=== PATIENT | female | born 1945 | race Caucasian/White ===

== ENCOUNTER → 2017-05-25 | Day surgery (SDC) | payer MEDICARE, BC ==
[2017-05-24 16:17] VITALS: BMI 27.0
[~2017-05-25] MED LIST: Lidocaine 1% PF 5 ML VIAL ONE; PROPOFOL 200 MG/20 ML VIAL ONE
--- NOTE | 2017-05-25 14:46 | OP ---
DATE OF PROCEDURE: 05/25/2017 TITLE OF PROCEDURE: Esophagogastroduodenoscopy with esophageal stricture dilation. PREPROCEDURE DIAGNOSES: 1. Dysphagia. 2. History of radiation-induced proximal esophageal stricture. 3. Distant history of tonsillar cancer. ANESTHESIA: Total intravenous anesthesia by Chayito Corbett CRNA. PROCEDURE IN DETAIL: Written informed consent was obtained. The patient was brought to the endoscopy suite. Total intravenous anesthesia was administered. A pediatric bite block was inserted into the mouth. When adequate sedation was achieved, a Pentax video diagnostic gastroscope was introduced into the oral cavity and the esophagus was carefully intubated. The gastroscope was advanced under direct visualization to the second portion of the duodenum. Endoscopic findings revealed a moderate luminal narrowing from the proximal esophageal stricture at 16 cm from the incisors. With careful movement of the endoscope, the stricture was traversed and the exam was completed before the dilation was performed. The EG junction was estimated at 37 cm. Examination of the stomach, including a retroflexed view of the cardia and fundus revealed a stable pancreatic rest in the body, antrum, area of the stomach, greater curvature. No ulcers or gastritis was identified. The duodenum from the bulb to the second portion was inspected and appeared grossly normal. Using an 18- 20 mm TTS balloon, the proximal esophageal stricture was dilated gently first at 2 atmospheres, then at stage I inflation pressure for 1 minute and finally at stage II inflation pressure for 230 second intervals. Post-dilation, a small superficial vertical mucosal disruption was identified, but no overt perforation was seen. Slight oozing was seen from the mucosal disruption, but no active bleeding was noted at the completion of the exam. A small submucosal hematoma, approximately 3-4 mm in size was also identified at the level of the stricture dilation. The esophagus was decompressed as the endoscope was completely removed from the patient. She was transferred to the day stay surgery area for post-procedure monitoring. There were no immediate complications. RECOMMENDATIONS: 1. Recommend liquid diet and soft foods today. 2. Continued Dexilant 60 mg daily. 3. Repeat EGD with dilation p.r.n. MTDD
== END ==
LOC: SDC 11:31
PROVIDERS: ATTEND Internal Medicine Gastroenterology
PROC: 0D758ZZ Dilation of Esophagus, Via Natural or Artificial Opening Endoscopic (ICD-10-PCS; principal; 2017-05-25)
DX: K22.2 Esophageal obstruction (principal); R13.10 Dysphagia, unspecified; Z88.2 Allergy status to sulfonamides; Z88.8 Allergy status to other drugs, medicaments and biological substances; Z85.89 Personal history of malignant neoplasm of other organs and systems
CPT/HCPCS: J2001; J2704

== ENCOUNTER → 2017-07-20 | Day surgery (SDC) | payer MEDICARE, BC ==
[2017-07-19 11:42] VITALS: BMI 26.5
--- NOTE | 2017-07-20 14:00 | OP ---
DATE OF PROCEDURE: 07/20/2017 PROCEDURE: Esophagogastroduodenoscopy with TTS balloon dilation of proximal esophageal stricture. PREOPERATIVE DIAGNOSES: 1. Dysphagia for solids and liquids. 2. Known proximal esophageal stricture due to previous radiation. 3. History of tonsillar cancer. POSTOPERATIVE DIAGNOSES: 1. Examination to second portion of duodenum. 2. Proximal esophageal stricture at 14 cm from the incisors, dilated with a 20 mm TTS balloon. 3. Small hiatal hernia with the GE junction estimated at 40 cm. 4. Stable pancreatic rest in the mid gastric body, greater curvature. 5. Normal duodenum. 6. Status post graduated 20 mm TTS balloon dilation of proximal esophageal stricture with good resul t. PROCEDURE IN DETAIL: Written informed consent was obtained. The patient was brought to the endoscop y suite. Total intravenous anesthesia was provided by Dr. Fredy Fermin and associates. The patient was placed in the left lateral decubitus position and a pediatric bite block was inserted into the m outh. A Pentax video diagnostic gastroscope was introduced into the oral cavity and the esophagus wa s carefully intubated. The endoscope was passed with mild resistance across the proximal esophageal stricture located at 14 cm from the incisors. There was also a notable esophageal spasm at this leve l. Examination of the esophagus revealed a mildly irregular Z-line at 40 cm and a 1 cm sliding hiata l hernia. Examination of the stomach, including a retroflexed view of the cardia and fundus revealed a stable 1 cm submucosal pancreatic rest in the mid gastric body, greater curvature. A small benign appearing sessile gastric polyp was noted in the proximal body. The duodenum from the bulb to the s econd portion was then inspected and appeared normal. Using a 20 mm TTS balloon, the proximal esopha geal stricture was dilated at all three stages for 1 minute intervals. Post-dilation, the area was i nspected and a small amount of mucosal disruption was noted with no active bleeding or esophageal tea r. The esophagus was then decompressed as the endoscope was completely removed from the patient. catie was transferred to the day stay surgery area for post-procedure monitoring. There were no immediat e complications. RECOMMENDATIONS: 1. Soft foods for the next 2 days. 2. Resume usual medications including Dexilant 30 mg daily. 3. Consider esophageal manometry to evaluate for a motility disorder once the patient returns from er vacation. 4. Repeat EGD with dilation as needed.
== END ==
LOC: SDC 10:36
PROVIDERS: ATTEND Internal Medicine Gastroenterology
PROC: 0D758ZZ Dilation of Esophagus, Via Natural or Artificial Opening Endoscopic (ICD-10-PCS; principal; 2017-07-20)
DX: K22.2 Esophageal obstruction (principal); K44.9 Diaphragmatic hernia without obstruction or gangrene; K31.7 Polyp of stomach and duodenum; Z88.2 Allergy status to sulfonamides; Z88.1 Allergy status to other antibiotic agents; Z88.5 Allergy status to narcotic agent; Z88.8 Allergy status to other drugs, medicaments and biological substances; Z91.048 Other nonmedicinal substance allergy status; Z85.89 Personal history of malignant neoplasm of other organs and systems
CPT/HCPCS: J2001; J2704

== ENCOUNTER 2017-09-13 11:29 | Outpatient (CLI) | payer MEDICARE, BC ==
--- NOTE | 2017-09-13 13:37 | RAD ---
CHEST TWO VIEWS: HISTORY: Cough. Congestion. COMPARISON: 12/08/2016 FINDINGS: The cardiac silhouette and the pulmonary vasculature are unremarkable. The mediastinum is midline wi th aortic calcification. No confluent air space consolidation, pneumothorax, or pleural fluid. IMPRESSION: Atherosclerosis. No active cardiopulmonary abnormalities are otherwise demonstrated. POS: IZZY
== END 2017-09-13 11:30 | disposition home or self-care (01) ==
LOC: SCSRAD 11:29
PROVIDERS: ATTEND Nurse Practitioner Family
DX: J40 Bronchitis, not specified as acute or chronic (principal); I70.0 Atherosclerosis of aorta
CPT/HCPCS: 71046

== ENCOUNTER 2017-10-26 12:05 | Day surgery (SDC) | payer MEDICARE, BC ==
[2017-10-25 15:01] VITALS: BMI 26.5
--- NOTE | 2017-10-26 19:41 | OP ---
DATE OF PROCEDURE: 10/26/2017 TITLE OF PROCEDURE: Esophagogastroduodenoscopy with balloon dilation of esophageal stricture. PREOPERATIVE DIAGNOSES: 1. Dysphagia. 2. History of proximal esophageal stricture. 3. History of tonsillar cancer, status post radiation therapy. POSTOPERATIVE DIAGNOSES: 1. Exam to seek second portion of duodenum. 2. Proximal esophageal stricture at 14 cm from the incisors, dilated with a 20 mm TTS balloon. 3. Small hiatal hernia. 4. Stable pancreatic rest in the mid body of the stomach, greater curvature. 5. Normal duodenum. PROCEDURE IN DETAIL: Written informed consent was obtained. The patient was brought to the endoscop y suite. Total intravenous anesthesia was provided by Dr. Gee and associates. The patient was pl aced in the left lateral decubitus position. A pediatric bite block was inserted into the mouth. A Pentax video diagnostic gastroscope was introduced into the oral cavity and the esophagus was careful ly intubated. The gastroscope was advanced under direct visualization to the second portion of the d uodenum. Endoscopic findings revealed mild proximal esophageal stenosis at 14 cm from the incisors. Using light pressure, the endoscope was safely advanced through the narrowing into the lower esophag us and ultimately the second portion of the duodenum. Endoscopic findings revealed a small hiatal he rnia of 1 cm length in the lower esophagus. There was no evidence of erosive esophagitis or esophage al ulcer. The stomach was entered and carefully examined. This included a careful retroflexed view of the cardia and fundus. A stable 8-mm pancreatic rest was noted in the greater curvature of the mi d body of the stomach. The pancreatic rest was solitary. The duodenum from the bulb to the second p ortion was then examined and appeared grossly normal. Using a 20 mm TTS balloon, the proximal esopha geal stricture was gradually dilated first at stage I then stage II then stage III inflation pressure s, each for approximately 60 seconds. Post-dilation, mild mucosal disruption without active bleeding was noted at 2 folds in the esophagus. There was no evidence of overt perforation. The esophagus w as decompressed as the endoscope was carefully removed from the patient. She was transferred to the day stay surgery area for post-procedure monitoring. There were no immediate complications. RECOMMENDATIONS: 1. Resume previous medications including Dexilant. 2. Clear liquids and soft foods for today. 3. Antireflux measures. 4. Repeat EGD with dilation as needed.
== END 2017-10-26 15:20 | disposition home or self-care (01) ==
LOC: SDC 12:05
PROVIDERS: ATTEND Internal Medicine Gastroenterology
PROC: 0D718ZZ Dilation of Upper Esophagus, Via Natural or Artificial Opening Endoscopic (ICD-10-PCS; principal; 2017-10-26)
DX: K22.2 Esophageal obstruction (principal); K44.9 Diaphragmatic hernia without obstruction or gangrene; D64.9 Anemia, unspecified; K21.9 Gastro-esophageal reflux disease without esophagitis; J32.9 Chronic sinusitis, unspecified; F32.9 Major depressive disorder, single episode, unspecified; M19.90 Unspecified osteoarthritis, unspecified site; E78.00 Pure hypercholesterolemia, unspecified; I25.10 Atherosclerotic heart disease of native coronary artery without angina pectoris; Z88.5 Allergy status to narcotic agent; Z88.6 Allergy status to analgesic agent; Z88.2 Allergy status to sulfonamides; Z88.1 Allergy status to other antibiotic agents; Z88.8 Allergy status to other drugs, medicaments and biological substances; Z79.899 Other long term (current) drug therapy

== ENCOUNTER 2018-02-01 10:22 | Day surgery (SDC) | payer MEDICARE, BC ==
[2018-01-31 11:31] VITALS: BMI 26.5
--- NOTE | 2018-02-01 12:53 | OP ---
DATE OF PROCEDURE: 02/01/2018 PROCEDURE: Esophagogastroduodenoscopy with balloon dilation of esophageal stricture. PREOPERATIVE DIAGNOSES: 1. Dysphagia. 2. History of esophageal stricture due to radiation therapy for tonsillar cancer. POSTOPERATIVE DIAGNOSES: 1. Examination to second portion of duodenum. 2. Mild proximal esophageal narrowing at 14 cm, dilated with a 20 mm TTS balloon at three stages. 3. Small sliding hiatal hernia. 4. Stable pancreatic rest in the gastric body, greater curvature. 5. Normal duodenum. PROCEDURE IN DETAIL: Written informed consent was obtained. The patient was brought to the endoscop y suite. Total intravenous anesthesia was provided by Dr. Fermin and associates. The patient was placed in the left lateral decubitus position. A pediatric bite block was inserted into the mouth. A Pentax video diagnostic gastroscope was introduced carefully into the oropharynx and the esophagus was carefully intubated. The gastroscope was advanced under direct visualization to the second porti on of the duodenum. Endoscopic findings revealed mild narrowing in the proximal esophagus just below the esophageal inlet. The stenosis was estimated at 14 cm from the incisors. It did not preclude m ovement of the gastroscope into the distal esophagus and stomach. The examination of the stomach inc luding a retroflexed view of the cardia and fundus revealed a stable pancreatic rest in the gastric b vic, greater curvature, measuring about 9-10 mm in diameter. The overlying mucosa was intact. One s mall benign appearing fundic polyp was noted in the proximal body of the stomach. It was not biopsie d. The duodenum from the bulb to the second portion was inspected and appeared grossly normal. Usin g a 20 mm TTS balloon, the stricture was dilated at 3 different stages under direct visualization. E ach dilation lasted approximately 1 minute and the balloon was deflated after each stage to evaluate the mucosa. After the third stage, a small mucosal disruption 3-4 mm long was identified at one poin t in the esophagus at about 14 cm. There was no overt tear or active bleeding. The esophagus was de compressed as the endoscope was completely removed from the patient. She was transferred to the day stay surgery area for post-procedure monitoring. There were no immediate complications. RECOMMENDATIONS: 1. Resume usual medications. 2. Resume usual diet. 3. Repeat EGD with dilation as needed.
== END 2018-02-01 13:19 | disposition home or self-care (01) ==
LOC: SDC 10:22
PROVIDERS: ATTEND Internal Medicine Gastroenterology
PROC: 0D758ZZ Dilation of Esophagus, Via Natural or Artificial Opening Endoscopic (ICD-10-PCS; principal; 2018-02-01)
DX: K22.2 Esophageal obstruction (principal); K44.9 Diaphragmatic hernia without obstruction or gangrene; I25.10 Atherosclerotic heart disease of native coronary artery without angina pectoris; D64.9 Anemia, unspecified; K21.9 Gastro-esophageal reflux disease without esophagitis; Z98.890 Other specified postprocedural states; F32.9 Major depressive disorder, single episode, unspecified; G47.00 Insomnia, unspecified; E07.9 Disorder of thyroid, unspecified; F41.9 Anxiety disorder, unspecified; E78.00 Pure hypercholesterolemia, unspecified; Z85.818 Personal history of malignant neoplasm of other sites of lip, oral cavity, and pharynx; Z79.899 Other long term (current) drug therapy; Z88.1 Allergy status to other antibiotic agents; Z88.2 Allergy status to sulfonamides; Z88.5 Allergy status to narcotic agent; Z88.8 Allergy status to other drugs, medicaments and biological substances; Y84.2 Radiological procedure and radiotherapy as the cause of abnormal reaction of the patient, or of later complication, without mention of misadventure at the time of the procedure

== ENCOUNTER 2018-02-07 12:05 | Outpatient (CLI) | payer MEDICARE, BC | END 2018-02-07 12:06 | disposition home or self-care (01) | LOC: BICMAMMO 12:05 | PROVIDERS: ATTEND Obstetrics & Gynecology | DX: Z12.31 Encounter for screening mammogram for malignant neoplasm of breast (principal); R92.1 Mammographic calcification found on diagnostic imaging of breast; Z80.3 Family history of malignant neoplasm of breast | CPT/HCPCS: 77063; 77067 ==

== ENCOUNTER 2018-05-24 09:50 | Day surgery (SDC) | payer MEDICARE, BC ==
[2018-05-24] MEDS ORDERED: Lidocaine 1% PF 5 ML VIAL ONE (13:32)
[2018-05-24] MEDS ORDERED: PROPOFOL 200 MG/20 ML VIAL ONE (13:32)
--- NOTE | 2018-05-24 15:40 | OP ---
DATE OF PROCEDURE: 05/24/2018 PROCEDURE PERFORMED: Esophagogastroduodenoscopy with balloon dilation of an esophageal stricture. PREPROCEDURE DIAGNOSES: 1. Dysphagia. 2. Known esophageal stricture from previous radiation therapy. 3. History of tonsillar cancer in April 2004. POSTPROCEDURE DIAGNOSES: 1. Exam to second portion of duodenum. 2. Proximal esophageal stricture at 15 cm from the incisors, dilated with a 20 mm TTS balloon at all three stages. 3. Small hiatal hernia. 4. Stable pancreatic rest in the body of the stomach, greater curvature. 5. Normal duodenum. PROCEDURE IN DETAIL: Written informed consent was obtained. The patient was brought to the endoscopy suite. Total intravenous anesthesia was provided by Dr. Jordan. The patient was placed in the left lateral decubitus position. A pediatric bite block was inserted into the mouth. A Pentax video diagnostic gastroscope was introduced into the oral cavity and the esophagus was carefully intubated. The endoscope was advanced under direct visualization to the second portion of the duodenum. Endoscopic findings revealed a proximal esophageal stricture offering mild resistance to forward movement of the gastroscope at about 15 cm from the incisors. This stricture was traversed and the instrument was advanced into the 2nd portion of the duodenum. Additional findings included a small sliding hiatal hernia. A stable submucosal pancreatic rest was noted in the body of the stomach, greater curvature. It measured about 9 mm in size and appeared stable as compared with her previous EGD in January 2018. The remainder of the stomach exam was unremarkable. The duodenum from the bulb to the second portion was also normal. Using a TTS balloon of 20 mm size, the proximal esophageal stricture was dilated for three 1-minute intervals at all three stages. After stage II, a small mucosal disruption was noted at 15 cm. This increased to slightly after the stage III dilation, but there was no obvious perforation or active bleeding from the mucosal disruption. The esophagus was decompressed as the endoscope was completely removed from the patient. She was transferred to the Day Stay surgery area for postprocedure monitoring. There were no immediate complications. RECOMMENDATIONS: 1. Resume previous diet and medications including Dexilant 30 mg daily. 2. Antireflux measures. 3. Discharge from Day Stay surgery area once anesthesia criteria satisfied. 4. Repeat EGD with dilation as needed. Job ID: [id number]
== END 2018-05-24 12:45 | disposition home or self-care (01) ==
LOC: SDC 09:50
PROVIDERS: ATTEND Internal Medicine Gastroenterology
PROC: 0D718ZZ Dilation of Upper Esophagus, Via Natural or Artificial Opening Endoscopic (ICD-10-PCS; principal; 2018-05-24)
DX: K22.2 Esophageal obstruction (principal); K44.9 Diaphragmatic hernia without obstruction or gangrene; I25.10 Atherosclerotic heart disease of native coronary artery without angina pectoris; J45.909 Unspecified asthma, uncomplicated; E03.9 Hypothyroidism, unspecified; E78.5 Hyperlipidemia, unspecified; F32.9 Major depressive disorder, single episode, unspecified; Z87.891 Personal history of nicotine dependence; Z79.899 Other long term (current) drug therapy; Z88.1 Allergy status to other antibiotic agents; Z88.2 Allergy status to sulfonamides; Z88.5 Allergy status to narcotic agent; Z88.8 Allergy status to other drugs, medicaments and biological substances; Z98.1 Arthrodesis status; Y84.2 Radiological procedure and radiotherapy as the cause of abnormal reaction of the patient, or of later complication, without mention of misadventure at the time of the procedure
CPT/HCPCS: J2001; J2704

== ENCOUNTER 2018-07-04 11:12 | Outpatient (CLI) | payer MEDICARE, BC ==
--- NOTE | 2018-07-04 12:23 | RAD ---
CERVICAL SPINE FIVE VIEWS: HISTORY: Cervical disk degeneration. Pain. FINDINGS: On the open-mouth projection, limited evaluation of the odontoid process, as well as the lateral mass es of C1 and C2. In the AP projection, there is no malalignment. There is posterior fusion change at C3 and C4. Lami nectomy defect at C3 and C4, as well as possibly C5, is suspected. The predental space is normal. No prevertebral soft tissue swelling. In the neutral position, there is straightening of the normal cervical lordosis. Upon flexion, there is no abnormal translational motion. Upon extension, there is approximately 1.7 mm of retrolisthesi s of C5 upon C6. Moderate degenerative disk disease at C5-C6. There is mild to moderate degenerative change at C6 upon C7. IMPRESSION: Degenerative changes as above. POS: YADI
== END 2018-07-04 11:13 | disposition home or self-care (01) ==
LOC: TBSIIMAG 11:12
PROVIDERS: ATTEND Neurological Surgery
DX: M50.30 Other cervical disc degeneration, unspecified cervical region (principal); M47.812 Spondylosis without myelopathy or radiculopathy, cervical region
CPT/HCPCS: 72050

== ENCOUNTER 2018-09-06 10:10 | Outpatient (CLI) | payer MEDICARE, BC ==
--- NOTE | 2018-09-06 14:18 | MRI ---
MRI OF LEFT KNEE PERFORMED WITHOUT CONTRAST ENHANCEMENT: Date: 09/06/18 HISTORY: Left knee pain. Patient complaining of pain and instability for the last month. FINDINGS: Anterior, as well as posterior cruciate ligaments are intact. There is a root tear of the posterior h orn of the medial meniscus. There is moderate meniscal subluxation related to loss of hoop strength. The radial tear measures 5 mm in transverse dimension with a similar amount of protrusion of the meni scus. There are marked arthritic changes of the medial compartment of the knee associated with these findings. Prominent spur formation and articular cartilage loss. On the lateral side, the body of the lateral meniscus is truncated with an undersurface flap-type tea r at the anterior horn/body junction region, and marked arthritic changes of the lateral compartment of the knee. There are Grade II-III chondromalacia changes of the lateral facet of the patella. There is moderate patellofemoral degenerative spur formation. The medial and lateral patellar retinaculum, and quadrice ps and patellar tendons are normal. Small Boudreaux's cyst is incidentally seen. IMPRESSION: 1. 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 2. Root tear of the posterior horn of the medial meniscus. 3. Undersurface flap-type tear involving the junction of the anterior horn and body of the lateral m eniscus. POS: [facility]
== END 2018-09-06 10:11 | disposition home or self-care (01) ==
LOC: SCSMRI 10:10
PROVIDERS: ATTEND Anesthesiology Pain Medicine
DX: S83.207A Unspecified tear of unspecified meniscus, current injury, left knee, initial encounter (principal); M17.12 Unilateral primary osteoarthritis, left knee; S83.242A Other tear of medial meniscus, current injury, left knee, initial encounter; S83.282A Other tear of lateral meniscus, current injury, left knee, initial encounter

== ENCOUNTER 2018-10-25 11:35 | Day surgery (SDC) | payer MEDICARE, BC ==
[2018-10-24 12:23] VITALS: BMI 27.3
--- NOTE | 2018-10-25 20:46 | OP ---
DATE OF PROCEDURE: 10/25/2018 PROCEDURE PERFORMED: Esophagogastroduodenoscopy with balloon dilation of esophageal stricture. PREPROCEDURE DIAGNOSES: 1. Dysphagia. 2. History of known esophageal stricture due to radiation therapy. 3. Distant history of tonsillar cancer. POSTPROCEDURE DIAGNOSES: 1. Exam to second portion of duodenum. 2. Esophageal stricture at 15 cm from the incisor teeth, successfully dilated with a 20-mm wugfihb-vpr-caokr balloon. 3. Stable pancreatic rest on the greater curvature, mid body of the stomach. 4. Otherwise, normal stomach. 5. Normal duodenum. PROCEDURE IN DETAIL: Written informed consent was obtained. The patient was brought to the endoscopy suite. Total intravenous anesthesia was administered by Mr. Dipak Dunham CRNA. The patient was placed in the left lateral decubitus position. A pediatric bite block was inserted into the mouth. A Pentax video diagnostic gastroscope was introduced into the oral cavity and the esophagus was carefully intubated. The gastroscope was advanced under direct visualization to the 2nd portion of the duodenum. Endoscopic findings revealed a evlg-bm-olxgrrlq esophageal narrowing at 15 cm from the incisors. Using gentle pressure, the endoscope could be safely advanced across the stricture into the duodenum. There was no evidence of erosive esophagitis. The stomach was entered and carefully examined. This included a retroflex view of the cardia and fundus. A 7-to 8-mm stable pancreatic rest was identified in the mid body of the stomach, greater curvature. No other gastric lesions were identified. The duodenum from the bulb to the 2nd portion was then examined and appeared grossly normal. Using a 20-mm pxfgjxp-cjp-vtouw balloon, the proximal esophageal stricture was carefully dilated at all 3 stages. Due to its proximal location in the esophagus, insufflation of the balloon did cause some compression of the epiglottic folds which somewhat hindered the patient's respirations. Thus, full insufflation at stage III for 60 seconds was not carried out. At stage III, she received only 30 seconds of insufflation. Postdilation, there was no evidence of bleeding or tear. Luminal patency, which was notably improved following the series of dilations. The esophagus was decompressed as the endoscope was completely removed from the patient. There were no immediate complications. She was transferred to the Day Stay Surgery area for postprocedure monitoring. RECOMMENDATIONS: 1. Resume previous diet and medications. 2. Continue observation in the PACU until anesthesia criteria are satisfied and patient can be discharged home with her . 3. Repeat EGD with dilation as needed. Job ID: [id number] MTDD
== END 2018-10-25 15:40 | disposition home or self-care (01) ==
LOC: SDC 11:35
PROVIDERS: ATTEND Internal Medicine Gastroenterology
PROC: 0D758ZZ Dilation of Esophagus, Via Natural or Artificial Opening Endoscopic (ICD-10-PCS; principal; 2018-10-25)
DX: K22.2 Esophageal obstruction (principal); Q45.3 Other congenital malformations of pancreas and pancreatic duct; D64.9 Anemia, unspecified; F41.9 Anxiety disorder, unspecified; M19.90 Unspecified osteoarthritis, unspecified site; I25.10 Atherosclerotic heart disease of native coronary artery without angina pectoris; K21.9 Gastro-esophageal reflux disease without esophagitis; Z85.818 Personal history of malignant neoplasm of other sites of lip, oral cavity, and pharynx; Z88.6 Allergy status to analgesic agent; Z88.2 Allergy status to sulfonamides; Z88.1 Allergy status to other antibiotic agents; Z88.5 Allergy status to narcotic agent; Z91.048 Other nonmedicinal substance allergy status; Z79.899 Other long term (current) drug therapy

== ENCOUNTER 2019-02-21 11:30 | Day surgery (SDC) | payer MEDICARE, BC ==
[2019-02-20 13:42] VITALS: BMI 26.9
[2019-02-21] MEDS ORDERED: PROPOFOL 200 MG/20 ML VIAL ONE (14:02)
[2019-02-21] MEDS ORDERED: Fentanyl 100 MCG/2 ML VIAL ONE (15:25)
--- NOTE | 2019-02-21 17:03 | OP ---
DATE OF PROCEDURE: 02/21/2019 PROCEDURES PERFORMED: Esophagogastroduodenoscopy with balloon dilation of esophageal stricture and snare polypectomy. PREPROCEDURE DIAGNOSES: 1. Dysphagia. 2. 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 POSTPROCEDURE DIAGNOSES: 1. Exam to second portion of duodenum. 2. Proximal esophageal stenosis at 15 cm from the incisor teeth, dilated with a 20 mm TTS balloon. 3. Small hiatal hernia. 4. Stable pancreatic rest, body of the stomach. 5. 11 mm gastric body polyp, removed by cold snare technique. 6. Normal duodenum. DESCRIPTION OF PROCEDURE: Written informed consent was obtained. The patient was brought to the endoscopy suite. Total intravenous anesthesia was administered by Elsa Mohamud CRNA. The patient was placed in the left lateral decubitus position. A bite block was inserted into the mouth. A Pentax video diagnostic gastroscope was introduced into the oral cavity and the esophagus was carefully intubated. The gastroscope was advanced under direct visualization to the second portion of the duodenum. Endoscopic findings revealed zqgi-qo-dkduwsck esophageal stenosis in the proximal esophagus, 15 cm from the incisor teeth. Mild forward pressure of the endoscope tip allowed me to traverse this area before dilation. Examination of the remainder of the esophagus showed a small hiatal hernia, but was otherwise normal. Examination of the stomach revealed an 11 mm sessile polyp in the proximal body of the stomach. The polyp was excised with cold snare polypectomy. The tissue was retrieved for histology. A stable pancreatic rest was identified in the body of the stomach, greater curvature. The overlying mucosa was intact. The duodenum from the bulb to the second portion was then inspected and appeared normal. Using a 20 mm TTS balloon, the proximal esophageal stenosis was serially dilated at 3 different stages of the 20 mm balloon. The balloon was deflated after each dilation and the stenotic area was examined before moving to the next stage of dilation. Post dilation, the esophageal lumen appeared more patent without evidence of bleeding or perforation. The esophagus was decompressed as the endoscope was removed from the patient. She was transferred to the Day Stay Surgery area for postprocedure monitoring. There were no immediate complications. RECOMMENDATIONS: 1. Await pathology results. 2. Ask the patient to call me in 1 week for pathology results. 3. The patient has agreed to proceed with esophageal manometry to further evaluate her dysphagia and this will be arranged on a later date with the GI lab. 4. Repeat EGD with dilation as needed. Job ID: [id number]
== END 2019-02-21 16:38 | disposition home or self-care (01) ==
LOC: SDC 11:30
PROVIDERS: ATTEND Internal Medicine Gastroenterology
PROC: 0D718ZZ Dilation of Upper Esophagus, Via Natural or Artificial Opening Endoscopic (ICD-10-PCS; principal; 2019-02-21)
PROC: 0DB68ZX Excision of Stomach, Via Natural or Artificial Opening Endoscopic, Diagnostic (ICD-10-PCS; 2019-02-21)
DX: K31.7 Polyp of stomach and duodenum (principal); K22.2 Esophageal obstruction; K44.9 Diaphragmatic hernia without obstruction or gangrene; K21.9 Gastro-esophageal reflux disease without esophagitis; I10 Essential (primary) hypertension; I25.10 Atherosclerotic heart disease of native coronary artery without angina pectoris; J45.909 Unspecified asthma, uncomplicated; G47.30 Sleep apnea, unspecified; Z79.810 Long term (current) use of selective estrogen receptor modulators (SERMs); Z79.899 Other long term (current) drug therapy; Z88.1 Allergy status to other antibiotic agents; Z88.2 Allergy status to sulfonamides; Z88.5 Allergy status to narcotic agent; Z88.6 Allergy status to analgesic agent; Z91.048 Other nonmedicinal substance allergy status; Z87.891 Personal history of nicotine dependence; Z98.1 Arthrodesis status
CPT/HCPCS: 88305; 88312; J2704; J3010

== ENCOUNTER 2019-02-26 08:10 | Outpatient (CLI) | payer MEDICARE, BC ==
--- NOTE | 2019-02-26 09:44 | ULT ---
ULTRASOUND ABDOMEN: Date: 02/26/19 HISTORY: Abdominal pain, intermittent mid epigastric shooting pains. FINDINGS: There is increased echogenicity of the liver consistent with fatty infiltration. There is trace amoun t of sludge in the gallbladder without shadowing gallstones, gallbladder wall thickening, or perichol ecystic fluid. The common duct measures 6 mm in diameter. The spleen, kidneys, and visualized portion s of the pancreas, aorta, and IVC appear normal. No free fluid is seen. IMPRESSION: 1. Fatty liver. 2. Trace gallbladder sludge. POS: OFF
== END 2019-02-26 08:11 | disposition home or self-care (01) ==
LOC: SCSULT 08:10
PROVIDERS: ATTEND Internal Medicine Gastroenterology
DX: R10.9 Unspecified abdominal pain (principal); K76.0 Fatty (change of) liver, not elsewhere classified; K82.8 Other specified diseases of gallbladder
CPT/HCPCS: 93975

== ENCOUNTER 2019-05-23 11:35 | Day surgery (SDC) | payer MEDICARE, BC ==
[2019-05-22 09:41] VITALS: BMI 26.5
[2019-05-23] MEDS ORDERED: PROPOFOL 200 MG/20 ML VIAL ONE (14:47)
--- NOTE | 2019-05-23 15:38 | OP ---
DATE OF PROCEDURE: 05/23/2019 PROCEDURE PERFORMED: Esophagogastroduodenoscopy with balloon dilation of esophageal stricture. PREPROCEDURE DIAGNOSES: 1. Recurrent dysphagia. 2. History of esophageal stricture due to radiation damage. 3. Distant history of tonsillar cancer. POSTPROCEDURE DIAGNOSES: 1. Exam to second portion of duodenum. 2. Esophageal stenosis at 15 cm, dilated with three stages of an 18 to 20 mm TTS balloon. 3. Small sliding hiatal hernia. 4. Stable pancreatic rest in the body of the stomach, greater curvature. 5. Normal duodenum. PROCEDURE IN DETAIL: Written informed consent was obtained. The patient was brought to the endoscopy suite. Total intravenous anesthesia was administered by Dr. Jay and associates. The patient was placed in the left lateral decubitus position. A pediatric bite block was inserted into the mouth. A Pentax video diagnostic gastroscope was introduced into the oral cavity, and the esophagus was carefully intubated. The gastroscope was advanced under direct visualization to the second portion of the duodenum. Endoscopic findings revealed dry mucous membranes and thick yellowish secretions in the hypopharynx that were suctioned and removed before the endoscope was advanced. At 15 cm from the incisors, a mild-to- moderate esophageal stenosis was encountered. Careful forward pressure of the endoscope allowed the endoscope to pass into the mid esophagus, where it was then guided carefully into the second portion of the duodenum. Endoscopic findings revealed a small sliding hiatal hernia about 1 cm in length. There was no evidence of erosive esophagitis. Exam of the stomach including a retroflexed view of the cardia and fundus revealed a stable pancreatic rest about 8-9 mm in diameter in the body of the stomach, greater curvature. The remainder of the stomach exam was normal. The duodenum from the bulb to the second portion was then inspected and appeared normal. Using an 18 to 20 mm TTS balloon, the proximal esophageal stricture was dilated carefully at all three stages for 1 minute each. Postdilation, a small amount of subepithelial bleeding was identified, but there was no apparent mucosal tear or perforation. The stomach and esophagus were then decompressed as the endoscope was completely removed from the patient. She was transferred to the Day Stay surgery area for postprocedure monitoring. There were no immediate complications. RECOMMENDATIONS: 1. Resume previous diet and medications. 2. Continue Dexilant daily. 3. Repeat EGD with dilation as needed. 4. Follow up in GI clinic as needed. Job ID: [id number] MTDD
== END 2019-05-23 14:35 | disposition home or self-care (01) ==
LOC: SDC 11:35
PROVIDERS: ATTEND Internal Medicine Gastroenterology
PROC: 0D718ZZ Dilation of Upper Esophagus, Via Natural or Artificial Opening Endoscopic (ICD-10-PCS; principal; 2019-05-23)
DX: K22.2 Esophageal obstruction (principal); K44.9 Diaphragmatic hernia without obstruction or gangrene; G47.33 Obstructive sleep apnea (adult) (pediatric); F32.9 Major depressive disorder, single episode, unspecified; I25.10 Atherosclerotic heart disease of native coronary artery without angina pectoris; I10 Essential (primary) hypertension; E78.5 Hyperlipidemia, unspecified; E03.9 Hypothyroidism, unspecified; M19.90 Unspecified osteoarthritis, unspecified site; F41.9 Anxiety disorder, unspecified; K21.9 Gastro-esophageal reflux disease without esophagitis; Z87.891 Personal history of nicotine dependence; Z79.899 Other long term (current) drug therapy; Z88.1 Allergy status to other antibiotic agents; Z88.2 Allergy status to sulfonamides; Z88.5 Allergy status to narcotic agent; Z88.8 Allergy status to other drugs, medicaments and biological substances; Z91.048 Other nonmedicinal substance allergy status
CPT/HCPCS: J2704

== ENCOUNTER 2019-10-21 04:45 | Outpatient (CLI) | payer MEDICARE, BC, OTHER ==
[2019-10-22 14:01] LABS: SARS-CoV-2 MS2 Positive; SARS-CoV-2 N Gene Negative; SARS-CoV-2 S Gene Negative; SARS-CoV-2 orf1ab Negative
== END 2019-10-21 04:46 | disposition home or self-care (01) ==
LOC: LABBT 04:45
PROVIDERS: ATTEND Internal Medicine Gastroenterology
DX: Z01.812 Encounter for preprocedural laboratory examination (principal); Z11.59 Encounter for screening for other viral diseases
CPT/HCPCS: 87635; U0003

== ENCOUNTER 2019-10-24 11:08 | Day surgery (SDC) | payer MEDICARE, BC ==
[2019-10-18 09:43] VITALS: BMI 25.4
[2019-10-24] MEDS ORDERED: PROPOFOL 200 MG/20 ML VIAL ONE (12:13)
[2019-10-24] MEDS ORDERED: Lidocaine 1% PF 5 ML VIAL ONE (12:13)
--- NOTE | 2019-10-24 15:02 | OP ---
DATE OF PROCEDURE: 10/24/2019 PROCEDURE PERFORMED: Esophagogastroduodenoscopy with balloon dilation of proximal esophageal stricture. PREPROCEDURE DIAGNOSES: 1. Dysphagia. 2. History of radiation associated esophageal stricture. 3. History of stable pancreatic rest, gastric body. POSTPROCEDURE DIAGNOSES: 1. Exam to second portion of duodenum. 2. Mild esophageal stenosis in the proximal esophagus at 15 cm from the incisors, gently dilated with a 20 mm TTS balloon with good effect. 3. Small hiatal hernia. 4. Stable pancreatic rest in the mid body of the stomach, greater curvature. 5. Normal duodenum. 6. Otherwise normal esophagogastroduodenoscopy. DESCRIPTION OF PROCEDURE: Written informed consent was obtained. The patient was brought to the endoscopy suite. Total intravenous anesthesia was administered by Dr. [facility]. The patient was placed in the left lateral decubitus position. A pediatric bite block was inserted. A Pentax video diagnostic gastroscope was introduced carefully into the oropharynx and the esophagus was gently intubated. The gastroscope was advanced under direct visualization to the second portion of the duodenum. Endoscopic findings revealed mild esophageal stenosis at 15 cm from the incisors, corresponding to the level of the patient's known esophageal stricture. The gastroscope was advanced through the stenosis into the lower esophagus and the remainder of the exam was completed before the dilation. A small hiatal hernia was identified in the lower esophagus. Examination of the stomach revealed a stable pancreatic rest, approximately 9 mm in diameter along the greater curvature of the stomach. No other lesions were noted in the stomach. The duodenum from the bulb to the second portion was then inspected and appeared grossly normal. The endoscope was brought back into the esophagus and a 20 mm TTS balloon was placed across the esophageal stenosis. The stricture was gently dilated at all three stages for 1 minute each. Post dilation, inspection of the esophagus revealed greater luminal patency and no evidence of tear or bleeding. The esophagus was then decompressed as the endoscope was completely removed from the patient. She was transferred to the Day Stay surgery area for postprocedure monitoring. There were no immediate complications. RECOMMENDATIONS: 1. Resume previous diet and medications. 2. We will ask the patient to reduce the dose of Dexilant to 30 mg daily. 3. Repeat EGD as needed. 4. Follow up with me in clinic in about one month. Job ID: [id number]
== END 2019-10-24 14:50 | disposition home or self-care (01) ==
LOC: SDC 11:08
PROVIDERS: ATTEND Internal Medicine Gastroenterology
PROC: 0D718ZZ Dilation of Upper Esophagus, Via Natural or Artificial Opening Endoscopic (ICD-10-PCS; principal; 2019-10-24)
DX: K22.2 Esophageal obstruction (principal); K44.9 Diaphragmatic hernia without obstruction or gangrene; F41.9 Anxiety disorder, unspecified; M19.90 Unspecified osteoarthritis, unspecified site; I25.10 Atherosclerotic heart disease of native coronary artery without angina pectoris; K21.9 Gastro-esophageal reflux disease without esophagitis; J45.909 Unspecified asthma, uncomplicated; G47.30 Sleep apnea, unspecified; E78.5 Hyperlipidemia, unspecified; E03.9 Hypothyroidism, unspecified; F32.9 Major depressive disorder, single episode, unspecified; Z85.89 Personal history of malignant neoplasm of other organs and systems; Z87.891 Personal history of nicotine dependence; Z79.810 Long term (current) use of selective estrogen receptor modulators (SERMs); Z79.899 Other long term (current) drug therapy; Z88.1 Allergy status to other antibiotic agents; Z88.2 Allergy status to sulfonamides; Z88.5 Allergy status to narcotic agent; Z88.6 Allergy status to analgesic agent; Z91.048 Other nonmedicinal substance allergy status; Y84.2 Radiological procedure and radiotherapy as the cause of abnormal reaction of the patient, or of later complication, without mention of misadventure at the time of the procedure
CPT/HCPCS: J2704

== ENCOUNTER 2020-01-30 07:55 | Outpatient (CLI) | payer MEDICARE, BC, OTHER ==
[2020-01-30 14:16] LABS: #Eosinphils 0.3 thou/uL (0.0-0.7); #Lymphocytes 1.1 thou/uL (1.20-3.40); #Monocytes 0.4 thou/uL (0.11-0.59); #Neutrophils 2.4 thou/uL (1.40-6.50); %Basophils 0.6 % (0.0-1.0); %Lymphocytes 25.4 % (21.0-51.0); %Monocytes 8.6 % (0.0-10.0); %Neutrophils 57.4 % (42.0-75.0); Hemoglobin 13.2 g/dL (12.0-16.0); Mean Corpuscular HGB CONC 33.8 g/dL (32.0-36.0); Mean Corpuscular Hemoglobin 29.8 pg (27.0-31.0); Mean Corpuscular Volume 88.2 fL (78.0-98.0); Mean Platelet Volume 7.7 fL (7.4-10.4); Platelet Count 147 thou/uL (130-400); RBC Distribution Width 15.6 % (11.5-14.5); Red Blood Cell (RBC) Count 4.43 mill/uL (4.20-5.40); White Blood Cell (WBC) Count 4.2 thou/uL (4.8-10.8)
[2020-01-30 14:27] LABS: INR-International Normal Ratio 1.1; Prothrombin Time 13.9 sec (12.0-14.7)
[2020-01-30 14:41] LABS: Bacteria/HPF None Seen HPF (None Seen); Bilirubin Negative (Negative); Blood, Urine Negative (Negative); Clarity Clear (Clear); Glucose, Urine (Dipstick) Normal (Negative); Ketone, Urine Negative (Negative); Leukocyte Negative Leu/uL (Negative); Nitrite Negative (Negative); Protein, Urine (Dipstick) 30 mg/dL (Neg-Trace); RBC/HPF 0-3 HPF (0-3); Specific Gravity, Urine 1.025 (1.002-1.036); Squamous Epithelial 0-3 HPF (0-3)
[2020-01-30 15:15] LABS: Anion Gap 14 mmol/L (10-20); BUN (Urea Nitrogen) 21 mg/dL (9.8-20.1); Calc. Creatinine Clearance 0 mL/min (70-130); Calcium 8.9 mg/dL (7.8-10.44); Carbon Dioxide 21 mmol/L (23-31); Chloride 111 mmol/L (98-107); Estimated GFR-MDRD 64; Glucose 112 mg/dL (83-110); Potassium 4.7 mmol/L (3.5-5.1); Sodium 141 mmol/L (136-145)
[2020-01-31 11:00] LABS: SARS-CoV-2 MS2 Positive; SARS-CoV-2 N Gene Negative; SARS-CoV-2 S Gene Negative; SARS-CoV-2 by NAA Not Detected (NotDetected); SARS-CoV-2 orf1ab Negative
== END 2020-01-30 07:56 | disposition home or self-care (01) ==
LOC: LABBT 07:55
PROVIDERS: ATTEND Orthopaedic Surgery
DX: Z01.812 Encounter for preprocedural laboratory examination (principal); Z20.828 Contact with and (suspected) exposure to other viral communicable diseases; M17.12 Unilateral primary osteoarthritis, left knee
CPT/HCPCS: 80048; 81001; 85025; 85610; U0003; 87635

== ENCOUNTER 2020-02-04 05:29 | Inpatient (IN) | payer MEDICARE, BC ==
[2020-02-04] MEDS ORDERED: Fentanyl 100 MCG/2 ML VIAL ONE ×3 (06:11→08:53)
[2020-02-04] MEDS ORDERED: Tranexamic Acid 1,000 MG/10 ML VIAL ONE (06:12)
[2020-02-04] MEDS ORDERED: Sodium Chloride 0.9% 100 ML ONE (06:12)
[2020-02-04] MEDS ORDERED: Vancomycin 1 GM/200 ML BAG ONE (06:12)
[2020-02-04] MEDS ORDERED: Lidocaine 1% (PF) 30 ML VIAL ONE (06:30)
[2020-02-04] MEDS ORDERED: Midazolam HCl 2 mg/2 ml Vial ONE (06:30)
[2020-02-04] MEDS ORDERED: Levofloxacin 500 mg/D5W 100 ml Premix Bag ONE (06:55)
[2020-02-04] MEDS ORDERED: Zolpidem Tartrate 5 MG TAB PO PRN ×2 (07:04→07:30)
[2020-02-04] MEDS ORDERED: diphenhydrAMINE 25 MG CAP PO PRN (07:04)
[2020-02-04] MEDS ORDERED: HYDROcodone/Acetaminophen 10/325 mg Tablet PO PRN ×4 (07:04→07:30)
[2020-02-04] MEDS ORDERED: Fentanyl 100 MCG/2 ML VIAL SLOW IVP PRN ×2 (07:04)
[2020-02-04] MEDS ORDERED: Promethazine HCl 25 MG/ML VIAL IM PRN ×3 (07:04→08:53)
[2020-02-04] MEDS ORDERED: Acetaminophen 325 MG TAB PO PRN ×2 (07:04→07:22)
[2020-02-04] MEDS ORDERED: Ondansetron PF 4 MG/2 ML Vial IVP PRN (07:04)
[2020-02-04] MEDS ORDERED: Ropivacaine HCl/PF 250 ML in Premix Bag 1 BAG NERVE BLCK SCH (07:30)
[2020-02-04] MEDS ORDERED: Ketorolac Tromethamine 30 MG/ML VIAL IVP PRN (07:30)
[2020-02-04] MEDS ORDERED: traMADol HCl 50 MG TAB PO PRN (07:30)
[2020-02-04] MEDS ORDERED: Hyoscyamine Sulfate SL 0.125 mg Tablet SL PRN (08:49)
[2020-02-04] MEDS ORDERED: Non-Formulary Item 1 EACH (Midodrine Hcl [Midodrine Hcl] 2.5 MG Tablet) PO PRN (08:49)
[2020-02-04] MEDS ORDERED: Non-Formulary Item 1 EACH (Losartan Potassium [Cozaar] 50 MG Tablet) PO PRN (08:49)
[2020-02-04] MEDS ORDERED: Promethazine HCl 25 MG/ML VIAL SLOW IVP PRN (08:53)
[2020-02-04] MEDS ORDERED: Ondansetron HCl/PF 4 MG/2 ML Vial IVP PRN (08:53)
[2020-02-04] MEDS ORDERED: [UNRECOGNIZED DRUG - OTHER] PO SCH (09:00)
[2020-02-04] MEDS ORDERED: GASSERI PO SCH ×2 (09:00→21:00)
[2020-02-04] MEDS ORDERED: B BIFIDUM PO SCH ×2 (09:00→21:00)
[2020-02-04] MEDS ORDERED: Non-Formulary Item 1 EACH (Fexofenadine Hcl [Allegra Allergy] 180 MG Tablet) PO SCH (09:00)
[2020-02-04] MEDS ORDERED: Tolterodine Tartrate LA 4 MG CAP PO SCH (09:00)
[2020-02-04] MEDS ORDERED: CYANOCOBALAMIN 2500 MCG SL SCH (09:00)
[2020-02-04] MEDS ORDERED: DARIFENACIN HYDROBROMIDE 7.5 MG PO SCH (09:00)
[2020-02-04] MEDS ORDERED: Non-Formulary Item 1 EACH (Icosapent Ethyl [Vascepa] 0.5 GM Capsule) PO SCH (09:00)
[2020-02-04] MEDS ORDERED: CeleCOXIB 100 MG CAP PO SCH (09:00)
[2020-02-04] MEDS ORDERED: Ondansetron PF 4 MG/2 ML Vial ONE ×2 (09:10→12:28)
--- NOTE | 2020-02-04 09:17 | RAD ---
EXAM: 2 views of the left knee HISTORY: Knee arthroplasty COMPARISON: None FINDINGS: No knee effusion is seen. The patient is status post knee arthroplasty without perihardware lucency or fracture. Air in the soft tissues is from recent surgery. IMPRESSION: Status post knee arthroplasty without evidence of complication.
[2020-02-04] MEDS ORDERED: Promethazine HCl 25 MG/ML VIAL ONE (09:25)
[2020-02-04] MEDS ORDERED: Ketorolac Tromethamine 30 MG/ML VIAL ONE (09:36)
[2020-02-04] MEDS ORDERED: Metoclopramide HCl 10 MG/2 ML VIAL ONE (09:43)
[2020-02-04] MEDS ORDERED: Diazepam 5 MG TAB PO PRN (10:51)
[2020-02-04] MEDS ORDERED: Losartan 25 MG TAB PO PRN (11:17)
[2020-02-04] MEDS ORDERED: MIDODRINE HCL 2.5 MG PO PRN (11:19)
[2020-02-04] MEDS: Sodium Chloride 0.9% 1,000 ML IV SCH ×2 (11:45→17:53)
[2020-02-04] MEDS: Levothyroxine Sodium 75 MCG TAB PO SCH (11:46)
[2020-02-04] MEDS: Aspirin 81 mg Enteric Coated Tablet PO SCH ×2 (11:46→21:19)
[2020-02-04] MEDS: Atenolol 25 MG TAB PO SCH ×2 (11:46→21:19)
[2020-02-04] MEDS ORDERED: PHENYLEPHRINE-NS 100 MCG/ML 10 ML SYRINGE ONE (12:28)
[2020-02-04] MEDS ORDERED: Lidocaine 1% PF 5 ML VIAL ONE (12:28)
[2020-02-04] MEDS ORDERED: Ropivacaine 0.2% HCl/PF (40 MG/20 ML VIAL) ONE (12:28)
[2020-02-04] MEDS ORDERED: Bupivacaine HCl 0.5%/Epinephrine 1:200,000/PF 30 ml Vial ONE (12:28)
[2020-02-04] MEDS ORDERED: Rocuronium Bromide 10 MG/ML (10ML VIAL) ONE (12:28)
[2020-02-04] MEDS ORDERED: Dexamethasone 20 MG/5 ML VIAL ONE (12:28)
[2020-02-04] MEDS ORDERED: PROPOFOL 200 MG/20 ML VIAL ONE (12:28)
[2020-02-04] MEDS ORDERED: EPHEDRINE 25 MG/5 ML SYRINGE ONE (12:28)
[2020-02-04] MEDS ORDERED: Glycopyrrolate 0.2 MG/ML 5 ML SYRINGE ONE (12:28)
[2020-02-04 13:01] VITALS: BMI 25.4
[2020-02-04] MEDS ORDERED: Ketorolac Tromethamine 30 MG/ML VIAL IVP SCH (14:00)
[2020-02-04] MEDS ORDERED: tiZANidine HCl 4 MG TAB PO PRN (14:20)
[2020-02-04] MEDS ORDERED: Communication Order-Pharmacy FS PRN (16:23)
[2020-02-04] MEDS: traMADol HCl 50 MG TAB PO PRN (17:52)
[2020-02-04] MEDS ORDERED: Vancomycin 1.5 GRAM/300 ML BAG 1.5 GM in Premix Bag 1 BAG IVPB SCH (18:00)
[2020-02-04] MEDS: Mometasone 100 MCG/Formoterol 5 MCG 120 PUFF INHALER INH SCH (19:43)
[2020-02-04] MEDS ORDERED: Non-Formulary Item 1 EACH (Rosuvastatin Calcium [Crestor] 40 MG Tablet) PO SCH (21:00)
[2020-02-04] MEDS ORDERED: Non-Formulary Item 1 EACH (Eszopiclone [Lunesta] 3 MG Tablet) PO SCH (21:00)
[2020-02-04] MEDS ORDERED: Non-Formulary Item 1 EACH (Docusate Sodium [Stool Softener] 100 MG Tablet) PO SCH (21:00)
[2020-02-04] MEDS ORDERED: B LONGUM PO SCH (21:00)
[2020-02-04] MEDS ORDERED: Eszopiclone [Lunesta] 3 MG PO SCH (21:00)
[2020-02-04] MEDS ORDERED: DEXLANSOPRAZOLE 30 MG PO SCH (21:00)
[2020-02-04] MEDS: Docusate 100 MG CAP PO SCH (21:20)
[2020-02-04] MEDS: Doxepin HCl 10 MG CAP PO SCH (21:22)
[2020-02-04] MEDS: Ezetimibe 10 MG TAB PO SCH (21:22)
[2020-02-04] MEDS: Icosapent Ethyl 1 GM CAPSULE PO SCH (21:23)
[2020-02-04] MEDS: Montelukast Sodium 10 mg Tablet PO SCH (21:23)
[2020-02-04] MEDS: Rosuvastatin 20 MG TAB PO SCH (21:26)
[2020-02-04] MEDS: Trospium 20 MG TAB PO SCH (21:27)
[2020-02-05] MEDS: Sodium Chloride 0.9% 1,000 ML IV SCH ×3 (02:46→23:14)
[2020-02-05] MEDS: traMADol HCl 50 MG TAB PO PRN ×4 (04:07→21:46)
[2020-02-05 05:45] LABS: Hemoglobin 11.1 g/dL (12.0-16.0); Mean Corpuscular HGB CONC 33.2 g/dL (32.0-36.0); Mean Corpuscular Volume 87.4 fL (78.0-98.0); Mean Platelet Volume 7.4 fL (7.4-10.4); Platelet Count 162 thou/uL (130-400); RBC Distribution Width 15.3 % (11.5-14.5); Red Blood Cell (RBC) Count 3.82 mill/uL (4.20-5.40); White Blood Cell (WBC) Count 6.4 thou/uL (4.8-10.8)
[2020-02-05] MEDS ORDERED: Vancomycin 1 GM in Premix Bag 1 BAG IVPB SCH (06:00)
[2020-02-05] MEDS: Mometasone 100 MCG/Formoterol 5 MCG 120 PUFF INHALER INH SCH ×2 (07:19→20:17)
[2020-02-05] MEDS: Icosapent Ethyl 1 GM CAPSULE PO SCH ×2 (07:41→20:41)
[2020-02-05] MEDS: Trospium 20 MG TAB PO SCH ×2 (07:41→20:43)
[2020-02-05] MEDS: Cyanocobalamin (Vitamin B-12) 1,000 MCG TAB PO SCH (07:42)
[2020-02-05] MEDS: Atenolol 25 MG TAB PO SCH ×2 (07:43→20:40)
[2020-02-05] MEDS: CeleCOXIB 100 MG CAP PO SCH (07:43)
[2020-02-05] MEDS: Loratadine 10 MG TAB PO SCH (07:44)
[2020-02-05] MEDS: Fluticasone Propionate Nasal Spray 16 gm Bottle NASAL SCH (07:46)
[2020-02-05] MEDS: Senokot S 8.6-50 MG TAB PO SCH ×2 (07:46→20:42)
[2020-02-05] MEDS: Aspirin 81 mg Enteric Coated Tablet PO SCH ×2 (07:47→20:40)
[2020-02-05] MEDS: Levothyroxine Sodium 75 MCG TAB PO SCH (07:47)
[2020-02-05] MEDS: Multivitamin W/ Minerals 1 TAB PO SCH (07:47)
[2020-02-05] MEDS: Ferrous Gluconate 324 MG TAB PO SCH ×2 (07:48→17:47)
[2020-02-05] MEDS ORDERED: DARIFENACIN HYDROBROMIDE 7.5 MG PO SCH (09:00)
[2020-02-05] MEDS: Fentanyl 100 MCG/2 ML VIAL SLOW IVP PRN ×3 (10:20→22:46)
[2020-02-05] MEDS: Ondansetron PF 4 MG/2 ML Vial IVP PRN (12:35)
--- NOTE | 2020-02-05 12:48 | OP ---
DATE OF PROCEDURE: 02/04/2020 PREOPERATIVE DIAGNOSIS: Degenerative joint disease, left knee. POSTOPERATIVE DIAGNOSIS: Degenerative joint disease, left knee. PROCEDURE PERFORMED: Left total knee arthroplasty using [place] Triathlon 2 tibia, 2 femur, 9 mm CS X3 polyethylene and A29 patella. SERVICE MANAGER: Courtney Hahn PA-C. The process assistant/co-surgeon was present through the entire procedure and was responsible for providing exposure, tissue retraction and any necessary limb or tissue manipulation required to obtain necessary reduction or hardware placement. The process assistant/co-surgeon also provided bleeding control, tissue closure, and suturing in conjunction with the primary surgeon. BLOOD LOSS: Minimal. SPECIMEN: None. DRAINS: None. COMPLICATION: None. TOURNIQUET TIME: 53 minutes. PROCEDURE IN DETAIL: After informed consent was obtained in the preoperative holding area, the patient was taken to the operative suite where general anesthesia was induced. Once adequate level of general anesthesia was obtained, the patient was positioned and a well-padded tourniquet was placed around the left proximal thigh. The left lower extremity was then prepped and draped in the usual sterile fashion. Prior to exsanguination, a time-out was called and all members of the surgical team agreed upon site, surgeon, and patient. The extremity was then exsanguinated and the tourniquet was raised. A midline longitudinal incision was then made directly over the patella extending 2 fingerbreadths above the superior pole of the patella and 2 fingerbreadths inferior to the inferior patellar pole of the patella. Deeper subcutaneous layers were dissected sharply and local bleeding was controlled with Bovie electrocautery. A quad tendon longitudinal split was then made sharply and a median parapatellar arthrotomy was carried out both sharp and with Bovie electrocautery, carried down to 1 fingerbreadth medial to the tibial tubercle. The knee was then placed into flexion and the patella was everted nicely, and a copious fat pad ectomy was performed allowing for greater exposure of the tibia. The computer-assisted distal femoral fiducial was then placed and pinned firmly, and the distal femoral cutting guide was pinned firmly into place. The oscillating saw was then used to remove the appropriate amount of bone. The 4-in-1 cutting block was then placed on the distal femur and the oscillating saw was used to remove the appropriate amount of bone off the anterior, posterior, and chamfer cuts. After completion of bone cuts, the anterior cruciate ligament was resected sharply and the posterior cruciate ligament retractor was placed and the tibia was subluxed for better exposure. Partial meniscectomies were carried out, and the tibial computer-assisted fiducial was pinned, and the cutting guide was placed. Oscillating saw was then used to remove the bone, with Hohmann retractors used to take care and protect the collateral ligaments. After the tibial resection was performed, a laminar utility worker production was placed in between the freshened bone cuts. The knee placed at 90 degrees and further bilateral meniscectomies were carried out, and the curved osteotome and curettage were used to remove any excess bone spurs in the posterior compartment. The trial femoral component, tibial baseplate were placed with the appropriate polyethylene trial insert with an appropriate polyethylene spacer and patellar button. The knee was taken through full range of motion with flexion and extension from 0 to 90 degrees and patellar broach squarely in the trochlea without any squinting or subluxation noted. The knee was also stable to varus and valgus stressing at 0, 15, 45, and 90 degrees of flexion. The drawer was negative. All trial components were then removed and the keel punch was used to provide the appropriate defect in the tibia with a mallet. The freshened bone cuts were copiously irrigated with pulsatile lavage of about 1.5 L to remove all excess debris. The freshened bone cuts were then dried with suction and lap sponge. The knee was placed in flexion and retractors were placed to provide access to all bone cuts. Tobramycin-impregnated methyl methacrylate cement was then placed on the freshened bone cuts and implants which were malleted firmly into place. Curettage and [place] elevators were used to remove any excess bone cement. The knee was placed into full extension and the patellar button was placed under compression, and the cement was allowed to cure. Once completed, the components were again taken through full range of motion and copious irrigation of the knee was carried out with another liter of normal saline. All components were inspected fully with full range of motion and varus and valgus stressing. There was no laxity noted and full extension was observed clinically. Primary closure was accomplished with #2 interrupted Vicryl stitch of the arthrotomy defect. This was oversewn with a #2 running Quill barbed stitch. The gravitational platelet system was then injected into the arthrotomy prior to closure. The subcutaneous layer was then closed with a running 0 barbed Monocryl stitch and skin closure accomplished with a running subcuticular 3-0 Monocryl barbed Quill stitch and augmented with cement on the skin. Tourniquet was lowered. Good spontaneous return of distal pulses was noted clinically and a sterile dressing was applied to the incision. The procedure was terminated without any complications. The patient was awakened in the operative suite and was removed, and the patient was taken to the recovery room in stable condition. Job ID: [id number]
[2020-02-05] MEDS: Docusate 100 MG CAP PO SCH (20:40)
[2020-02-05] MEDS: Ezetimibe 10 MG TAB PO SCH (20:41)
[2020-02-05] MEDS: Montelukast Sodium 10 mg Tablet PO SCH (20:41)
[2020-02-05] MEDS: Doxepin HCl 10 MG CAP PO SCH (20:41)
[2020-02-05] MEDS: Rosuvastatin 20 MG TAB PO SCH (20:42)
[2020-02-06] MEDS: traMADol HCl 50 MG TAB PO PRN ×3 (05:19→15:35)
[2020-02-06] MEDS: Mometasone 100 MCG/Formoterol 5 MCG 120 PUFF INHALER INH SCH (07:08)
--- NOTE | 2020-02-06 08:03 | RAD ---
Exam: Chest one view HISTORY:Evaluate for pneumonia Comparison: 06/15/2019 FINDINGS: Cardiac silhouette: Normal Aorta: Atherosclerotic and slightly elongated. Pulmonary vessels: Normal Costophrenic angles: Clear LUNGS: No masses or consolidation. There is a linear density projecting over the right hilum. 2 view chest radiograph is recommended. Pneumothorax: None Osseous abnormalities: None IMPRESSION: 1. Atherosclerosis 2. No acute cardiopulmonary process. 3. 2 view chest radiograph is recommended to better evaluate the linear density projecting over the r ight hilum. CODE T
[2020-02-06] MEDS: Atenolol 25 MG TAB PO SCH (10:08)
[2020-02-06] MEDS: Trospium 20 MG TAB PO SCH (10:09)
[2020-02-06] MEDS: Senokot S 8.6-50 MG TAB PO SCH (10:09)
[2020-02-06] MEDS: Cyanocobalamin (Vitamin B-12) 1,000 MCG TAB PO SCH (10:10)
[2020-02-06] MEDS: Icosapent Ethyl 1 GM CAPSULE PO SCH (10:10)
[2020-02-06] MEDS: Levothyroxine Sodium 75 MCG TAB PO SCH (10:11)
[2020-02-06] MEDS: Ferrous Gluconate 324 MG TAB PO SCH ×2 (10:12→15:35)
[2020-02-06] MEDS: Loratadine 10 MG TAB PO SCH (10:12)
[2020-02-06] MEDS: Multivitamin W/ Minerals 1 TAB PO SCH (10:13)
[2020-02-06] MEDS: Aspirin 81 mg Enteric Coated Tablet PO SCH (10:13)
[2020-02-06] MEDS: CeleCOXIB 100 MG CAP PO SCH (10:15)
[2020-02-06] MEDS: Fluticasone Propionate Nasal Spray 16 gm Bottle NASAL SCH (10:16)
[2020-02-06] MEDS: Sodium Chloride 0.9% 1,000 ML IV SCH (10:17)
[2020-02-06 11:11] LABS: #Basophils 0.1 thou/uL (0.0-0.2); #Eosinphils 0.4 thou/uL (0.0-0.7); #Lymphocytes 2.6 thou/uL (1.20-3.40); #Neutrophils 4.8 thou/uL (1.40-6.50); %Basophils 0.7 % (0.0-1.0); %Eosinophils 4.8 % (0.0-10.0); %Lymphocytes 29.2 % (21.0-51.0); %Monocytes 11.5 % (0.0-10.0); %Neutrophils 53.8 % (42.0-75.0); Hemoglobin 11.5 g/dL (12.0-16.0); Mean Corpuscular HGB CONC 33.2 g/dL (32.0-36.0); Mean Corpuscular Hemoglobin 29.4 pg (27.0-31.0); Mean Corpuscular Volume 88.7 fL (78.0-98.0); Mean Platelet Volume 7.6 fL (7.4-10.4); Platelet Count 165 thou/uL (130-400); RBC Distribution Width 15.6 % (11.5-14.5); Red Blood Cell (RBC) Count 3.91 mill/uL (4.20-5.40); White Blood Cell (WBC) Count 8.8 thou/uL (4.8-10.8)
[2020-02-06 11:29] LABS: Anion Gap 11 mmol/L (10-20); BUN (Urea Nitrogen) 15 mg/dL (9.8-20.1); Calc. Creatinine Clearance 63 mL/min (70-130); Calcium 9.4 mg/dL (7.8-10.44); Carbon Dioxide 23 mmol/L (23-31); Estimated GFR-MDRD 68; Glucose 103 mg/dL (83-110); Potassium 4.2 mmol/L (3.5-5.1); Sodium 135 mmol/L (136-145)
[2020-02-06 11:54] LABS: Chloride 105 mmol/L (98-107)
[2020-02-06 12:30] VITALS: BP 107/60; TEMP 98.1
--- NOTE | 2020-02-06 12:32 | RAD ---
XR Chest Pa Lat STANDARD HISTORY: Shortness of breath COMPARISON: 02/06/2020, 06/15/2019 FINDINGS: The heart size is normal. The aorta is tortuous. The lungs are well expanded without focal areas of consolidation, pneumothorax or pleural effusions. IMPRESSION: No radiographic evidence of acute cardiopulmonary process.
--- NOTE | 2020-02-06 13:00 | PDOC.HHP ---
Hospitalist HPI - History of Present Illness SOB History of Present Illness: Ms. Cook is a 74-year-old female with past medical history of obstructive sleep apnea, hypertension, hyperlipidemia, hypothyroidism, throat cancer status post radiation and chemotherapy, diverticulitis, ulcerative colitis, recurrent esophageal stricture with multiple dilations, Christoph fundoplication who was admitted for a left total knee replacement by on 02/04/2020. LTKR with no complications. Hospitalist service consulted for medical management, and due to patient's complaint of shortness of breath. Patient reports that she is concerned she may have pneumonia. Has history of recurrent aspiration pneumonia secondary to radiation for throat cancer causing multiple esophageal strictures. Patient reports that after every operation she has had previously she has gone aspiration pneumonia. She reports that this morning she had a new productive cough with white sputum. She has noticed that on her incentive spirometry she has not been able to achieve the same level she was yesterday. She reports that she is breathing comfortably at rest however. She denies any chest pain, dizziness, palpitations. Of note patient has multiple severe allergies to many antibiotics including vancomycin, Bactrim, ciprofloxacin, Flagyl, Keflex, sulfa antibiotics. She does report that she has taken Levaquin without any adverse reaction in the past. Hospitalist ROS - Review of Systems Constitutional: denies: fever, chills, sweats, weakness, malaise, other Eyes: denies: pain, vision change, conjunctivae inflammation, eyelid inflammation, redness, other ENT: denies: ear pain, ear discharge, nose pain, nose discharge, nose congestion, mouth pain, mouth swelling, throat pain, throat swelling, other Respiratory: reports: cough, sputum Cardiovascular: denies: chest pain, palpitations, orthopnea, paroxysmal noc. dyspnea, edema, light headedness, other Gastrointestinal: denies: nausea, vomiting, abdominal pain, diarrhea, c onstipation, melena, hematochezia, other Genitourinary: denies: dysuria, frequency, incontinence, hematuria, retention, other Musculoskeletal: denies: neck pain, shoulder pain, arm pain, back pain, hand pain, leg pain, foot pain, other Skin: denies: rash, lesions, tash, bruising, other Neurological: denies: weakness, numbness, incoordination, change in speech, confusion, seizures, other - Medication Medications: Active Medications Generic Name Dose Route Start Last Admin Trade Name Freq PRN Reason Stop Dose Admin Hydrocodone Bitart/Acetaminophen 2 tab 02/04/20 07:30 02/04/20 22:57 Hydrocodone/Acetaminophen 10/325 Mg Tablet PO 2 tab Q4H PRN Administration PAIN (4-6) Aspirin 81 mg 02/04/20 09:00 02/06/20 10:13 Aspirin 81 Mg Enteric Coated Tablet PO 81 mg BID GENESIS Administration Atenolol 25 mg 02/04/20 09:00 02/06/20 10:08 Atenolol 25 Mg Tab PO 25 mg BID GENESIS Administration Celecoxib 100 mg 02/05/20 09:00 02/06/20 10:15 Celecoxib 100 Mg Cap PO 100 mg DAILY GENESIS Administration Cyanocobalamin 5,000 mcg 02/05/20 09:00 02/06/20 10:10 Cyanocobalamin (Vitamin B-12) 1,000 Mcg Tab PO 5,000 mcg DAILY GENESIS Administration Diltiazem HCl 30 mg 02/04/20 09:00 02/06/20 10:13 Diltiazem Hcl 30 Mg Tablet PO 30 mg BID GENESIS Administration Docusate Sodium 100 mg 02/04/20 21:00 02/05/20 20:40 Docusate 100 Mg Cap PO Not Given HS GENESIS Doxepin HCl 10 mg 02/04/20 21:00 02/05/20 20:41 Doxepin Hcl 10 Mg Cap PO 10 mg HS GENESIS Administration Ezetimibe 10 mg 02/04/20 21:00 02/05/20 20:41 Ezetimibe 10 Mg Tab PO 10 mg HS GENESIS Administration Fentanyl 50 mcg 02/04/20 07:21 02/05/20 22:46 Fentanyl 100 Mcg/2 Ml Vial SLOW IVP 50 mcg Q1H PRN Administration breakthrough pain Ferrous Gluconate 324 mg 02/05/20 08:00 02/06/20 10:12 Ferrous Gluconate 324 Mg Tab PO 324 mg BID-WM GENESIS Administration Fluticasone Propionate 0 gm 02/05/20 09:00 02/06/20 10:16 Fluticasone Propionate Nasal [place] 16 Gm Bottle NASAL 2 spr DAILY GENESIS Administration Sodium Chloride 1,000 mls @ 100 mls/hr 02/04/20 07:15 02/06/20 10:17 Normal Saline 0.9% IV Not Given .Q10H GENESIS Ropivacaine 250 ml/ Device 250 mls @ 10 mls/hr 02/04/20 07:30 02/05/20 10:15 NERVE BLCK 02/07/20 07:29 250 mls INF GENESIS Administration Iron/Minerals/Multivitamins 1 tab 02/05/20 09:00 02/06/20 10:13 Multivitamin W/ Minerals 1 Tab PO 1 tab DAILY GENESIS Administration Levothyroxine Sodium 75 mcg 02/04/20 09:00 02/06/20 10:11 Levothyroxine Sodium 75 Mcg Tab PO 75 mcg QAM GENESIS Administration Loratadine 10 mg 02/05/20 09:00 02/06/20 10:12 Loratadine 10 Mg Tab PO 10 mg DAILY GENESIS Administration Miscellaneous Medication 2 gm 02/04/20 21:00 02/06/20 10:10 Icosapent Ethyl 1 Gm Capsule PO Not Given BID GENESIS Mometasone Furoate/Formoterol Fumar 2 puff 02/04/20 18:30 02/06/20 07:08 Mometasone 100 Mcg/Formoterol 5 Mcg 120 Puff Inhaler INH 2 puff BID-RT GENESIS Administration Montelukast Sodium 10 mg 02/04/20 21:00 02/05/20 20:41 Montelukast Sodium 10 Mg Tablet PO 10 mg HS GENESIS Administration Ondansetron HCl 4 mg 02/04/20 07:30 02/05/20 12:35 Ondansetron Pf 4 Mg/2 Ml Vial IVP 4 mg Q6H PRN Administration Nausea/Vomiting Pantoprazole Sodium 40 mg 02/04/20 21:00 02/05/20 20:42 Pantoprazole 40 Mg Tab PO 40 mg HS GENESIS Administration Raloxifene HCl 60 mg 02/05/20 09:00 02/06/20 10:19 Raloxifene Hcl 60 Mg Tab PO 60 mg QAM GENESIS Administration Ranolazine 500 mg 02/04/20 21:00 02/06/20 10:07 Ranolazine 500 Mg Tab PO Not Given BID GENESIS Rosuvastatin Calcium 40 mg 02/04/20 21:00 02/05/20 20:42 Rosuvastatin 20 Mg Tab PO 40 mg HS GENESIS Administration Senna/Docusate Sodium 2 tab 02/05/20 09:00 02/06/20 10:09 Senokot S 8.6-50 Mg Tab PO 2 tab BID GENESIS Administration Tizanidine HCl 4 mg 02/04/20 14:20 02/05/20 20:43 Tizanidine Hcl 4 Mg Tab PO 4 mg HS PRN Administration Muscle Pain Tramadol HCl 100 mg 02/04/20 07:30 02/06/20 10:35 Tramadol Hcl 50 Mg Tab PO 100 mg Q6H PRN Administration Moderate Pain 4-6 Trospium 20 mg 02/04/20 21:00 02/06/20 10:09 Trospium 20 Mg Tab PO 20 mg BID GENESIS Administration Vitamin E 200 units 02/05/20 09:00 02/06/20 10:12 Vitamin E 200 Units Cap PO 200 units DAILY GENESIS Administration Hospitalist History - Past Medical History Other Medical History: Past medical history of JIN Hyperlipidemia Hypertension Hypothyroidism Throat cancer status post radiation, chemotherapy Diverticulitis Ulcerative colitis TMJ Autonomic dysfunction Subclavian stenosis Peripheral vascular disease - Past Surgical History Other Surgical History: Past medical history of Left total knee replacement Tonsillectomy Over 20 EGDs for esophageal dilation C-spine surgery Nasal surgery Hysterectomy Christoph fundoplication PEG - Family History Other Family History: Denies any family history of cardiac disease, cancer, diabetes - Social History Smoking Status: Never smoker Alcohol: reports: None Drugs: reports: none Living Situation: With Family Activity level: independent ambulation - Exam General Appearance: NAD, awake alert Eye: PERRL, anicteric sclera ENT: normocephalic atraumatic, no oropharyngeal lesions, moist mucosa Neck: supple, symmetric, no JVD, no thyromegaly, no lymphadenopathy, no carotid bruit Heart: RRR, no murmur, no gallops, no rubs, normal peripheral pulses Respiratory: CTAB, no wheezes, no rales, no ronchi, normal chest expansion, no tachypnea, normal percussion Gastrointestinal: soft, non-tender, non-distended, normal bowel sounds, no palpable masses, no hepatomegaly, no splenomegaly, no bruit Extremities: no cyanosis, no clubbing, no edema Extremities - other findings: Left knee with dressing in place Skin: normal turgor, no lesions, no rashes Neurological: cranial nerve grossly intact, normal sensation to touch, no w eakness, no focal deficits, no new deficit Musculoskeletal: normal tone, normal strength, no muscle wasting Psychiatric: normal affect, normal behavior, A&O x 3 Hospitalist Results - Labs Result Diagrams: 02/06/20 10:42 02/06/20 10:42 Lab results: WBC 8.8 thou/uL (4.8-10.8) 02/06/20 10:42 Hgb 11.5 g/dL (12.0-16.0) L 02/06/20 10:42 Hct 34.7 % (36.0-47.0) L 02/06/20 10:42 MCV 88.7 fL (78.0-98.0) 02/06/20 10:42 Plt Count 165 thou/uL (130-400) 02/06/20 10:42 Neutrophils % 53.8 % (42.0-75.0) 02/06/20 10:42 Sodium 135 mmol/L (136-145) L 02/06/20 10:42 Potassium 4.2 mmol/L (3.5-5.1) 02/06/20 10:42 Chloride 105 mmol/L (98-107) 02/06/20 10:42 Carbon Dioxide 23 mmol/L (23-31) 02/06/20 10:42 BUN 15 mg/dL (9.8-20.1) 02/06/20 10:42 Creatinine 0.83 mg/dL (0.6-1.1) 02/06/20 10:42 Glucose 103 mg/dL (83-110) 02/06/20 10:42 Calcium 9.4 mg/dL (7.8-10.44) 02/06/20 10:42 Hospitalist H&P A/P - Plan Plan: 74-year-old female with past medical history of obstructive sleep apnea, hyperlipidemia, hypertension, hypothyroidism, throat cancer status post radiation, chemotherapy resulting in multiple esophageal strictures requiring dilations, recurrent aspiration pneumonia, ulcerative colitis who underwent a left total knee replacement with on 02/04/2020. Patient tolerated procedure well with no complications. Hospitalist service consulted for medical management of chronic conditions and concern for pneumonia. Productive Cough Given patient's new productive cough, decreased inspiratory volumes, and significant history and risk of aspiration pneumonia will start patient on IV Levaquin. Chest x-ray showed no acute process, white blood cell count 8.8. Patient afebrile with SPO2 of 94% on room air. Potentially new cough is beginning of aspiration pneumonia. Will start patient on IV Levaquin, however since her respiratory status is quite stable can likely be treated as an outpatient with p.o. Levaquin for 5 days. Will ensure that patient's O2 saturations do not drop and will have nurses do a walking trial. Plan IV Levaquin, with plan to transition to p.o. as outpatient -Walking pulse ox -Close outpatient follow up with PCP Continue to monitor respiratory status Hyponatremia Mild hyponatremia to 135. Likely secondary to hypervolemic hyponatremia. Will discontinue IV fluids and continue to monitor. Plan Stop IV fluids Trend sodium Patient's other chronic conditions are stable. May continue home medications. DVT prophylaxisper surgical team Full code Case discussed with attending physician, Dr. Woods who is in agreement with assessment and plan.
[2020-02-06] MEDS: Ondansetron PF 4 MG/2 ML Vial IVP PRN (13:39)
--- NOTE | 2020-02-07 12:52 | PQF ---
CLINICAL DOCUMENTATION CLARIFICATION FORM: Dear Leana Terrell PA-C Date: 02/07/2020 Please exercise your independent, professional judgment in responding to the clarification form. Clinical indicators are provided on the bottom of this form for your review. ASPIRATION PNEUMONIA Present on Admission (POA): [ ] Yes [ x] No [ ] Unable to determine For continuity of documentation, please document condition throughout progress notes and discharge summary. Thank You. CLINICAL INDICATORS - SIGNS / SYMPTOMS / LABS / RESULTS AND LOCATION IN EMR *Hospitalist H&P 02/05 (Xander): * SOB * Patient reports that she is concerned she may have pneumonia. * She reports that this morning she had a new productive couch with white sputum. * She notices that on her incentive spirometry she has not been able to achieve the same level she was yesterday. * She reports that she is breathing comfortably at rest however. * Patient tolerated procedure well with no complication. * Hospitalist service consulted for medical management of chronic conditions and concern for pneumonia. * Given patients new cough, decreased inspiratory volumes, and significant history and risk aspiration pneumonia will start patient on IV Levaquin. * Chest x-ray showed no acute process, white cell count 8.8. Patient afebrile with SPO2 of 94% on room air. * Potentially new cough is beginning of aspiration of pneumonia. RISK FACTORS / RESULTS AND LOCATION IN EMR *Hospitalist H&P 02/05 (Xander): * Throat cancer status post radiation and chemotherapy recurrent esophageal structure with multiple dilations * Has history of recurrent aspiration pneumonia secondary to radiation for throat cancer causing multiple esophageal strictures. Reports that after every operation she has had aspiration pneumonia. * ... Left total knee replacement with Dr. Odom on 02/04/2020. TREATMENTS / RESULTS AND LOCATION IN EMR *Reports (EMR): Chest X-Ray 02/05 x 2 *Hospitalist H&P 02/05 (Xander): Will start patient on IV Levaquin . Likely be treated as an outpatient with p.o. Levaquin for 5 days. Will ensure that patients O2 saturations do not drop and will have nurses do a walking trial. . Close outpatient follow up with PCP. Thank you, Priscilla CDS/Staff Nurse Signature: Priscilla Spears RN, CDS Phone #: [phone] [email or web address] This is a permanent part of the Medical Record [facility]
== END 2020-02-06 16:05 | disposition home or self-care (01) | DRG 469 ==
LOC: SDC 05:29 → SJJU 07:04
PROVIDERS: ADMIT Orthopaedic Surgery; ATTEND Orthopaedic Surgery
PROC: 0SRD0J9 Replacement of Left Knee Joint with Synthetic Substitute, Cemented, Open Approach (ICD-10-PCS; principal; 2020-02-04)
DX: M17.12 Unilateral primary osteoarthritis, left knee (principal); J69.0 Pneumonitis due to inhalation of food and vomit; E87.1 Hypo-osmolality and hyponatremia; E78.5 Hyperlipidemia, unspecified; G47.33 Obstructive sleep apnea (adult) (pediatric); I73.9 Peripheral vascular disease, unspecified; Z79.899 Other long term (current) drug therapy; Z88.8 Allergy status to other drugs, medicaments and biological substances
CPT/HCPCS: 36415; 71045; 71046; 80048; 85025; 85027; C1713; C1776; J0690; J1100; J1885; J1956; J2001; J2250; J2405; J2550; J2704; J2765; J2795; J3010; J3370; J3490

== ENCOUNTER 2020-02-24 07:27 | Outpatient (CLI) | payer MEDICARE, BC ==
--- NOTE | 2020-02-02 12:02 | EKG ---
Test Reason : Blood Pressure : / mmHG Vent. Rate : 074 BPM Atrial Rate : 074 BPM P-R Int : 150 ms QRS Dur : 090 ms QT Int : 422 ms P-R-T Axes : 049 -15 -11 degrees QTc Int : 468 ms Normal sinus rhythm Normal ECG No previous ECGs available Confirmed by DINAH EDWARDS (2) on 02/02/2020 12:01:47 PM Referred By: BHARATH Confirmed By:DINAH EDWARDS
[2020-02-25 09:25] LABS: SARS-CoV-2 MS2 Positive; SARS-CoV-2 N Gene Negative; SARS-CoV-2 S Gene Negative; SARS-CoV-2 by NAA Not Detected (NotDetected); SARS-CoV-2 orf1ab Negative
== END 2020-02-24 07:28 | disposition home or self-care (01) ==
LOC: LABBT 07:27
PROVIDERS: ATTEND Internal Medicine Gastroenterology
DX: Z01.818 Encounter for other preprocedural examination (principal); K22.2 Esophageal obstruction; Z20.828 Contact with and (suspected) exposure to other viral communicable diseases
CPT/HCPCS: 93005; U0003; 87635; 93010

== ENCOUNTER 2020-02-27 11:00 | Day surgery (SDC) | payer MEDICARE, BC ==
[2020-02-26 11:55] VITALS: BMI 25.7
[2020-02-27] MEDS ORDERED: Lidocaine Viscous Sol 2% 15 ml UD Cup ONE (13:23)
--- NOTE | 2020-02-27 14:47 | OP ---
DATE OF PROCEDURE: 02/27/2020 TITLE OF PROCEDURE: EGD with balloon dilation of esophageal stricture. PREPROCEDURE DIAGNOSES: 1. Dysphagia. 2. 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 3. History of tonsillar cancer. POSTPROCEDURE DIAGNOSES: 1. Exam to second portion of duodenum. 2. Mild proximal esophageal stricture at 15 cm from the incisors, dilated with a 20 mm CRE balloon. 3. 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 4. Normal duodenum. 5. Otherwise, normal EGD. DESCRIPTION OF PROCEDURE: Written informed consent was obtained. The patient was brought to the endoscopy suite. Total intravenous anesthesia was administered by Dr. Alegria and associates. The patient was placed in the left lateral decubitus position. A pediatric bite block was inserted into the mouth. A [employer] video diagnostic gastroscope was introduced into the oral cavity and the esophagus was carefully intubated. The gastroscope was advanced under direct visualization to the 2nd portion of the duodenum. Endoscopic findings revealed mild stenosis at 15 cm from the incisors due to a known esophageal stricture. This area was traversed by the endoscope even before the dilation. The endoscope was advanced into the stomach and ultimately to the 2nd portion of the duodenum. Additional findings included a stable pancreatic rest about 1.2 cm in diameter in the body of the stomach, greater curvature. Just anterior to this area, dimpling of the mucosa along with some granulation tissue was observed and consistent with the patient's previous history of gastrostomy tube. The scar tissue appeared intact. Examination of the remainder of the stomach including a retroflexed view of the cardia and fundus was unremarkable. The duodenum from the bulb to the 2nd portion was then inspected and appeared normal. Using a [employer] CRE balloon, the proximal esophageal stricture was dilated at all 3 stages from 18 mm to 20 mm. The dilation site was inspected after each insufflation of the balloon. Post dilation, a small amount of subepithelial bleeding was noted, but there was no hematoma or overt perforation. The esophageal lumen also appeared more patent after the dilation. The stomach and esophagus were decompressed as the endoscope was completely removed from the patient. There were no immediate complications. She was transferred to the Day Stay surgery area for postprocedure monitoring. RECOMMENDATIONS: 1. Resume previous diet and medications. 2. For the initial meal after the EGD, would recommend soft foods and liquids. 3. Continue Dexilant. 4. Repeat EGD with balloon dilation as needed, usually in 3 to 4 months. Job ID: [id number]
== END 2020-02-27 14:40 | disposition home or self-care (01) ==
LOC: SDC 11:00
PROVIDERS: ATTEND Internal Medicine Gastroenterology
PROC: 0D718ZZ Dilation of Upper Esophagus, Via Natural or Artificial Opening Endoscopic (ICD-10-PCS; principal; 2020-02-27)
DX: K22.2 Esophageal obstruction (principal); G47.30 Sleep apnea, unspecified; E78.5 Hyperlipidemia, unspecified; I10 Essential (primary) hypertension; I25.10 Atherosclerotic heart disease of native coronary artery without angina pectoris; F41.9 Anxiety disorder, unspecified; M19.90 Unspecified osteoarthritis, unspecified site; K21.9 Gastro-esophageal reflux disease without esophagitis; Z85.89 Personal history of malignant neoplasm of other organs and systems; Z87.891 Personal history of nicotine dependence; Z79.810 Long term (current) use of selective estrogen receptor modulators (SERMs); Z79.899 Other long term (current) drug therapy; Z88.1 Allergy status to other antibiotic agents; Z88.2 Allergy status to sulfonamides; Z88.7 Allergy status to serum and vaccine; Z91.048 Other nonmedicinal substance allergy status; Y84.2 Radiological procedure and radiotherapy as the cause of abnormal reaction of the patient, or of later complication, without mention of misadventure at the time of the procedure
CPT/HCPCS: J2704

== ENCOUNTER 2020-06-18 10:43 | Outpatient (CLI) | payer MEDICARE, BC ==
[2020-06-19 04:32] LABS: SARS-CoV-2 PCR by NAA Not Detected (NotDetected)
== END 2020-06-18 10:44 | disposition home or self-care (01) ==
LOC: LABBT 10:43
PROVIDERS: ATTEND Internal Medicine Gastroenterology
DX: Z01.812 Encounter for preprocedural laboratory examination (principal); K22.2 Esophageal obstruction; R13.12 Dysphagia, oropharyngeal phase; Z20.822 Contact with and (suspected) exposure to COVID-19
CPT/HCPCS: U0003; U0005; 87635

== ENCOUNTER 2020-06-23 12:36 | Day surgery (SDC) | payer MEDICARE, BC ==
[2020-06-22 12:41] VITALS: BMI 26.0
[2020-06-23] MEDS ORDERED: Fentanyl 100 MCG/2 ML VIAL ONE (13:51)
[2020-06-23] MEDS ORDERED: PROPOFOL 200 MG/20 ML VIAL ONE (14:26)
== END 2020-06-23 15:18 | disposition home or self-care (01) ==
LOC: SDC 12:36
PROVIDERS: ATTEND Internal Medicine Gastroenterology
PROC: 0D718ZZ Dilation of Upper Esophagus, Via Natural or Artificial Opening Endoscopic (ICD-10-PCS; principal; 2020-06-23)
DX: K22.2 Esophageal obstruction (principal); K44.9 Diaphragmatic hernia without obstruction or gangrene; M19.90 Unspecified osteoarthritis, unspecified site; G47.30 Sleep apnea, unspecified; E78.5 Hyperlipidemia, unspecified; I10 Essential (primary) hypertension; I25.10 Atherosclerotic heart disease of native coronary artery without angina pectoris; E89.0 Postprocedural hypothyroidism; F32.9 Major depressive disorder, single episode, unspecified; Z85.89 Personal history of malignant neoplasm of other organs and systems; Z87.891 Personal history of nicotine dependence; Z88.1 Allergy status to other antibiotic agents; Z88.2 Allergy status to sulfonamides; Z88.6 Allergy status to analgesic agent; Z88.8 Allergy status to other drugs, medicaments and biological substances; Z91.048 Other nonmedicinal substance allergy status; Y84.2 Radiological procedure and radiotherapy as the cause of abnormal reaction of the patient, or of later complication, without mention of misadventure at the time of the procedure
CPT/HCPCS: J2704; J3010

== ENCOUNTER 2020-07-20 10:42 | Outpatient (CLI) | payer MEDICARE, BC ==
[2020-07-20 19:02] LABS: SARS-CoV-2 PCR by NAA Not Detected (NotDetected)
== END 2020-07-20 10:43 | disposition home or self-care (01) ==
LOC: LABBT 10:42
PROVIDERS: ATTEND Internal Medicine Gastroenterology
DX: Z01.812 Encounter for preprocedural laboratory examination (principal); K22.2 Esophageal obstruction; R13.12 Dysphagia, oropharyngeal phase; Z20.822 Contact with and (suspected) exposure to COVID-19
CPT/HCPCS: U0003; U0005; 87635

== ENCOUNTER 2020-07-23 10:09 | Outpatient (CLI) | payer MEDICARE, BC | END 2020-07-23 10:10 | disposition home or self-care (01) | PROVIDERS: ATTEND Internal Medicine Gastroenterology | DX: R13.12 Dysphagia, oropharyngeal phase (principal); C09.9 Malignant neoplasm of tonsil, unspecified | CPT/HCPCS: 74230 ==

== ENCOUNTER 2021-09-27 09:56 | Outpatient (CLI) | payer MEDICARE, BC | END 2021-09-27 09:57 | disposition home or self-care (01) | LOC: LABBT 09:56 | PROVIDERS: ATTEND Family Medicine | DX: Z20.822 Contact with and (suspected) exposure to COVID-19 (principal) | CPT/HCPCS: U0003; U0005 ==

== ENCOUNTER 2021-10-01 11:03 | Day surgery (SDC) | payer MEDICARE, BC ==
[2021-09-29 12:45] VITALS: BMI 26.4
[2021-10-01] MEDS ORDERED: Iopamidol-M 300 61% 15 ML VIAL ONE (12:30)
[2021-10-01] MEDS ORDERED: fentaNYL Citrate/PF 100 MCG/2 ML SYRINGE ONE (12:55)
[2021-10-01] MEDS ORDERED: Ketamine 50 MG/ML (10ML VIAL) ONE (12:55)
[2021-10-01] MEDS ORDERED: PROPOFOL 200 MG/20 ML VIAL ONE (13:15)
== END 2021-10-01 14:50 | disposition home or self-care (01) ==
LOC: SDC 11:03 → EDSTATUS 13:00 → SDC 14:50
PROVIDERS: ATTEND Neurological Surgery
PROC: B01B1ZZ Fluoroscopy of Spinal Cord using Low Osmolar Contrast (ICD-10-PCS; principal; 2021-10-01)
DX: M50.11 Cervical disc disorder with radiculopathy, high cervical region (principal); M48.02 Spinal stenosis, cervical region; M43.12 Spondylolisthesis, cervical region; M47.813 Spondylosis without myelopathy or radiculopathy, cervicothoracic region; M48.03 Spinal stenosis, cervicothoracic region; M51.16 Intervertebral disc disorders with radiculopathy, lumbar region; M47.26 Other spondylosis with radiculopathy, lumbar region; M48.061 Spinal stenosis, lumbar region without neurogenic claudication; M47.817 Spondylosis without myelopathy or radiculopathy, lumbosacral region; M51.37 Other intervertebral disc degeneration, lumbosacral region; M48.07 Spinal stenosis, lumbosacral region; I65.23 Occlusion and stenosis of bilateral carotid arteries; I70.0 Atherosclerosis of aorta; Z79.890 Hormone replacement therapy; Z79.899 Other long term (current) drug therapy; Z88.1 Allergy status to other antibiotic agents; Z88.2 Allergy status to sulfonamides; Z88.5 Allergy status to narcotic agent; Z88.6 Allergy status to analgesic agent; Z88.8 Allergy status to other drugs, medicaments and biological substances; Z98.1 Arthrodesis status
CPT/HCPCS: 36415; 62305; 72126; 72132; 82565; J2704; Q9967

== ENCOUNTER 2021-10-05 16:02 | Outpatient (CLI) | payer MEDICARE, BC | END 2021-10-05 16:03 | disposition home or self-care (01) | LOC: TBSIIMAG 16:02 | PROVIDERS: ATTEND Neurological Surgery | DX: M54.12 Radiculopathy, cervical region (principal); Z98.890 Other specified postprocedural states | CPT/HCPCS: 72040 ==

== ENCOUNTER 2021-11-03 11:13 | Outpatient (CLI) | payer MEDICARE, BC | END 2021-11-03 11:14 | disposition home or self-care (01) | LOC: TBSIIMAG 11:13 | PROVIDERS: ATTEND Neurological Surgery | DX: M54.12 Radiculopathy, cervical region (principal); Z98.890 Other specified postprocedural states | CPT/HCPCS: 72040 ==

== ENCOUNTER 2022-02-16 11:53 | Outpatient (CLI) | payer MEDICARE, BC | END 2022-02-16 11:54 | disposition home or self-care (01) | LOC: SCSMRI 11:53 | PROVIDERS: ATTEND Specialist | DX: G31.84 Mild cognitive impairment of uncertain or unknown etiology (principal) | CPT/HCPCS: 36415; 70553; 82565; 84439; 84443; 84481 ==

== ENCOUNTER 2022-06-21 10:51 | Outpatient (CLI) | payer MEDICARE, BC | END 2022-06-21 10:52 | disposition home or self-care (01) | LOC: SCSCT 10:51 | PROVIDERS: ATTEND Neurological Surgery | DX: M47.22 Other spondylosis with radiculopathy, cervical region (principal); M50.121 Cervical disc disorder at C4-C5 level with radiculopathy; M48.02 Spinal stenosis, cervical region; M50.122 Cervical disc disorder at C5-C6 level with radiculopathy; M50.123 Cervical disc disorder at C6-C7 level with radiculopathy; Z98.890 Other specified postprocedural states | CPT/HCPCS: 72050; 72125 ==

== ENCOUNTER 2023-02-02 11:04 | Day surgery (SDC) | payer MEDICARE, BC ==
[2023-02-01 09:54] VITALS: BMI 26.5
[2023-02-02] MEDS ORDERED: PROPOFOL 200 MG/20 ML VIAL ONE (13:16)
== END 2023-02-02 14:55 | disposition home or self-care (01) ==
LOC: SDC 11:04
PROVIDERS: ATTEND Internal Medicine Gastroenterology
PROC: 0D758ZZ Dilation of Esophagus, Via Natural or Artificial Opening Endoscopic (ICD-10-PCS; principal; 2023-02-02)
DX: R13.10 Dysphagia, unspecified (principal); K22.2 Esophageal obstruction; D64.9 Anemia, unspecified; F41.9 Anxiety disorder, unspecified; I25.10 Atherosclerotic heart disease of native coronary artery without angina pectoris; E07.9 Disorder of thyroid, unspecified; Z90.89 Acquired absence of other organs; Z90.710 Acquired absence of both cervix and uterus; Z98.890 Other specified postprocedural states; Z79.02 Long term (current) use of antithrombotics/antiplatelets; Z88.8 Allergy status to other drugs, medicaments and biological substances; Z88.1 Allergy status to other antibiotic agents; Z88.5 Allergy status to narcotic agent; Z88.2 Allergy status to sulfonamides
CPT/HCPCS: J2704

== ENCOUNTER 2023-05-16 08:30 | Day surgery (SDC) | payer MEDICARE, BC ==
[2023-05-10 13:43] VITALS: BMI 26.5
[2023-05-16] MEDS ORDERED: Bupivacaine PF 0.5% 30 ML VIAL ONE (08:47)
[2023-05-16] MEDS ORDERED: Bacitracin Zinc Ointment 30 gm TUBE ONE (08:47)
[2023-05-16] MEDS ORDERED: PROPOFOL 20 ML ONE (08:48)
[2023-05-16] MEDS ORDERED: Lidocaine 2% PF 5 ML VIAL ONE (08:49)
[2023-05-16] MEDS ORDERED: Propofol 500 MG/50 ML VIAL ONE (09:12)
[2023-05-16] MEDS ORDERED: Midazolam HCl 2 mg/2 ml Vial ONE (09:12)
[2023-05-16] MEDS ORDERED: fentaNYL PF 100 MCG/2 ML SYRINGE ONE (09:13)
[2023-05-16] MEDS ORDERED: KETAMINE 100 MG/ML (5ML VIAL) ONE (09:13)
[2023-05-16] MEDS ORDERED: Clindamycin/D5W 600 mg/50 ml Premix Bag ONE (09:26)
[2023-05-16] MEDS ORDERED: Phenylephrine 10 MG/ML VIAL ONE (10:04)
[2023-05-16] MEDS ORDERED: PHENYLEPHRINE-NS 100 MCG/ML 10 ML SYRINGE ONE (10:09)
== END 2023-05-16 12:00 | disposition home or self-care (01) ==
LOC: SDC 08:30
PROVIDERS: ATTEND Orthopaedic Surgery Hand Surgery
PROC: 01N40ZZ Release Ulnar Nerve, Open Approach (ICD-10-PCS; principal; 2023-05-16)
DX: M65.332 Trigger finger, left middle finger (principal); M65.331 Trigger finger, right middle finger; M19.021 Primary osteoarthritis, right elbow; M19.022 Primary osteoarthritis, left elbow; M35.1 Other overlap syndromes; E78.5 Hyperlipidemia, unspecified; I10 Essential (primary) hypertension; M19.90 Unspecified osteoarthritis, unspecified site; E07.9 Disorder of thyroid, unspecified; J32.9 Chronic sinusitis, unspecified; J45.909 Unspecified asthma, uncomplicated; Z98.890 Other specified postprocedural states; Z90.89 Acquired absence of other organs; Z90.710 Acquired absence of both cervix and uterus; Z96.652 Presence of left artificial knee joint; Z88.8 Allergy status to other drugs, medicaments and biological substances; Z88.2 Allergy status to sulfonamides; Z88.1 Allergy status to other antibiotic agents; Z91.030 Bee allergy status; Z91.038 Other insect allergy status; Z91.048 Other nonmedicinal substance allergy status; Z88.5 Allergy status to narcotic agent
CPT/HCPCS: J0665; J2001; J2250; J2371; J2704; J3490